=== PATIENT | female | born 1945 | race Asian ===

== ENCOUNTER → 2018-05-12 | Outpatient (CLI) | payer MEDICARE, OTHER | END | disposition home or self-care (01) | LOC: RADPV 13:43 | PROVIDERS: ATTEND Internal Medicine Geriatric Medicine | DX: M16.0 Bilateral primary osteoarthritis of hip (principal); M81.0 Age-related osteoporosis without current pathological fracture | CPT/HCPCS: 73502 ==

== ENCOUNTER → 2018-05-24 | Outpatient (CLI) | payer MEDICARE, OTHER | END | disposition home or self-care (01) | LOC: RADPV 13:18 | PROVIDERS: ATTEND Internal Medicine Cardiovascular Disease | DX: I08.1 Rheumatic disorders of both mitral and tricuspid valves (principal) | CPT/HCPCS: 93306 ==

== ENCOUNTER 2018-08-14 22:17 | Emergency (ER) | payer MEDICARE, OTHER ==
[~2018-08-14] VITALS: Ht 157.5 cm; Wt 75.6 kg
[2018-08-14] MEDS ORDERED: ATOR40TA28 PO (22:27)
[2018-08-14] MEDS ORDERED: AMLO1TAB12 PO (22:27)
[2018-08-14 22:46] LABS: APPEARANCE,URINE CLEAR (CLEAR); BILIRUBIN,URINE NEGATIVE (NEGATIVE); GLUCOSE, URINE (UA) NEGATIVE (NEGATIVE); KETONES,URINE NEGATIVE (NEGATIVE); LEUKOCYTE ESTERASE ,URINE MODERATE (NEGATIVE); NITRATE,URINE NEGATIVE (NEGATIVE); OCCULT BLOOD,URINE LARGE (NEGATIVE); PH,URINE 7.5 (5.0-8.0); PROTEIN,URINE NEGATIVE (NEGATIVE); UROBILINOGEN,URINE 0.2 mg/dL (<=1.0)
[2018-08-14 22:56] LABS: BACTERIA,URINE None Seen /HPF (None Seen)
[2018-08-14 22:57] LABS: SQUAMOUS EPITHELIAL CELL,UR Few /LPF (None Seen)
[2018-08-15] MEDS ORDERED: CEPHALEXIN MONOHYDRATE 500 MG CAPSULE PO ONE
[2018-08-15 00:03] VITALS: BP 147/75
== END 2018-08-15 00:08 | disposition home or self-care (01) ==
LOC: EMS 22:17
DX: N39.0 Urinary tract infection, site not specified (principal); I10 Essential (primary) hypertension; E78.00 Pure hypercholesterolemia, unspecified; Z90.710 Acquired absence of both cervix and uterus
CPT/HCPCS: 87086

== ENCOUNTER → 2018-11-30 | Outpatient (CLI) | payer MEDICARE, OTHER ==
[~2018-11-30] MED LIST: AMLO1TAB12 PO; ATOR40TA28 PO
== END | disposition home or self-care (01) ==
LOC: RADPV 10:37
PROVIDERS: ATTEND Internal Medicine Geriatric Medicine
DX: R74.0 Nonspecific elevation of levels of transaminase and lactic acid dehydrogenase [LDH] (principal)
CPT/HCPCS: 76700

== ENCOUNTER 2019-06-25 11:37 | Emergency (ER) | payer MEDICARE, OTHER ==
[~2019-06-25] VITALS: Ht 157.5 cm; Wt 65.0 kg
[2019-06-25 12:35] LABS: BILIRUBIN,URINE NEGATIVE (NEGATIVE); GLUCOSE, URINE (UA) NEGATIVE (NEGATIVE); KETONES,URINE NEGATIVE (NEGATIVE); LEUKOCYTE ESTERASE ,URINE MODERATE (NEGATIVE); NITRATE,URINE NEGATIVE (NEGATIVE); PH,URINE 7.5 (5.0-8.0); PROTEIN,URINE NEGATIVE (NEGATIVE); UROBILINOGEN,URINE 0.2 mg/dL (<=1.0)
[2019-06-25 12:45] LABS: APPEARANCE,URINE HAZY (CLEAR); OCCULT BLOOD,URINE SMALL (NEGATIVE)
[2019-06-25 12:46] LABS: BACTERIA,URINE Moderate /HPF (None Seen); WBC,URINE 26-50 /HPF (0-5)
[2019-06-25 13:30] VITALS: BP 173/73
== END 2019-06-25 14:01 | disposition home or self-care (01) ==
LOC: EMS 11:39
DX: N39.0 Urinary tract infection, site not specified (principal); E78.00 Pure hypercholesterolemia, unspecified; I10 Essential (primary) hypertension; Z90.710 Acquired absence of both cervix and uterus
CPT/HCPCS: 87086

== ENCOUNTER → 2022-05-22 | Outpatient (CLI) | payer MEDICARE, OTHER | END | disposition home or self-care (01) | LOC: RADPV 15:45 | PROVIDERS: ATTEND Internal Medicine Geriatric Medicine | DX: M85.88 Other specified disorders of bone density and structure, other site (principal); M25.559 Pain in unspecified hip | CPT/HCPCS: 73521 ==